=== PATIENT | male | born 1960 | race Caucasian/White ===

== ENCOUNTER 2022-07-17 22:20 | Emergency (ER) | payer SELFPAY ==
[~2022-07-17] VITALS: Ht 188 cm; Wt 77.1 kg
[~2022-07-17 22:20] MED LIST: SULF-59 PO; VIC PO
[2022-07-17 22:25] VITALS: BP 153/90
--- NOTE | 2022-07-17 22:28 | NUR ---
TO LOBBY A/W BED VIA W/C
--- NOTE | 2022-07-17 23:36 | NUR ---
PT TO BED 12
--- NOTE | 2022-07-17 23:55 | NUR ---
RECEIVED IN BED 12 WITH C/O BILATERAL LEG WAEKNESS FOR 3 DAYS, NO TRAUMA NOR INJURY
--- NOTE | 2022-07-18 00:32 | NUR ---
PT IS WITH POOR VENOUS ACCESS. ATTEMPT X 2, LAB DRAW
[2022-07-18 00:50] LABS: BASOPHILS # (AUTO) 0.1 K/uL (0.00-0.22); BASOPHILS % (AUTO) 0.8 % (0.0-2.0); EOSINOPHILS # (AUTO) 0.3 K/uL (0-0.4); EOSINOPHILS % (AUTO) 3.6 % (0.0-4.0); HEMATOCRIT 45.7 % (36-52); HEMOGLOBIN 15.4 g/dL (12.0-18.0); LYMPHOCYTES # (AUTO) 2.5 K/uL (2.0-11.5); LYMPHOCYTES % (AUTO) 35.5 % (20.5-51.1); MEAN CORPUSCULAR HEMOGLOBIN 29 pg (27-31); MEAN CORPUSCULAR HGB CONC 34 g/dL (33-37); MEAN CORPUSCULAR VOLUME 84.8 fL (80-94); MONOCYTES # (AUTO) 0.4 K/uL (0.8-1.0); NEUTROPHILS # (AUTO) 3.8 K/uL (1.8-7.7); NEUTROPHILS % (AUTO) 54.1 % (42.2-75.2); PLATELET COUNT (AUTO) 150 K/uL (140-450); RED BLOOD CELL COUNT(AUTO) 5.39 MIL/uL (4.20-6.10); RED CELL DISTRIBUTION WIDTH 14.2 % (11.6-13.7)
[2022-07-18 01:25] VITALS: BP 153/90
--- NOTE | 2022-07-18 01:25 | NUR ---
PT AWAKE AND GOT OUT OF BED, GOT DRESSED AND SAID "I'M LEAVING, MY RIDE IS HERE" PT LEFT, SIGNING AMA
[2022-07-18 01:36] LABS: ALBUMIN 3.4 g/dL (3.4-5.0); ANION GAP 11.6 (8-16); ASPARTATE AMINOTRANSFERASE 74 U/L (15-37); CARBON DIOXIDE 27.1 mmol/L (21-32); CHLORIDE 103 mmol/L (98-107); CREATININE 0.9 mg/dL (0.6-1.3); GFR ARICAN-AMERICAN 110 mL/min (>90); GLUCOSE 124 mg/dL (74-106); MAGNESIUM 1.7 mg/dL (1.8-2.4); POTASSIUM 3.7 mmol/L (3.5-5.1); SODIUM SERUM 138 mmol/L (136-145); TOTAL BILIRUBIN 0.7 mg/dL (0.0-1.0); UREA NITROGEN, BLOOD 16 mg/dL (7-18)
== END 2022-07-18 01:25 | disposition left against medical advice (07) ==
LOC: MED 22:20
DX: R53.1 Weakness (principal); Z79.899 Other long term (current) drug therapy; Z98.890 Other specified postprocedural states
CPT/HCPCS: 36415; 72100; 80053; 82550; 83735; 85025; 99284; G0482

== ENCOUNTER 2022-07-20 20:37 | Emergency (ER) | payer SELFPAY ==
[~2022-07-20] VITALS: Ht 188 cm; Wt 77.1 kg
[2022-07-20 20:55] VITALS: BP 140/87
--- NOTE | 2022-07-20 20:58 | NUR ---
TO LOBBY A/W BED VIA W/C
[2022-07-20] MEDS ORDERED: SULF-58 PO (23:08)
--- NOTE | 2022-07-20 23:10 | NUR ---
SEEN AND EXAMINED BY KAYLEE
[2022-07-20 23:12] VITALS: BP 140/87
--- NOTE | 2022-07-20 23:12 | NUR ---
Patient discharged with v/s stable. Written and verbal after care instructions given and explained. Patient alert, oriented and verbalized understanding of instructions. Ambulatory with steady gait. All questions addressed prior to discharge. ID band removed. Patient advised to follow up with PMD. Rx of BACTRIM DS given. Patient educated on indication of medication including possible reaction and side effects. Opportunity to ask questions provided and answered.
== END 2022-07-20 23:12 | disposition home or self-care (01) ==
LOC: MED 20:37
DX: K02.9 Dental caries, unspecified (principal); Z79.899 Other long term (current) drug therapy
CPT/HCPCS: 99281